=== PATIENT | female | born 1925 | race Caucasian/White ===

== ENCOUNTER 2017-04-06 20:20 | Observation (INO) | payer OTHER ==
[2017-04-06 20:30] VITALS: BMI 29.0
--- NOTE | 2017-04-06 20:30 | PDOC ---
History of Present Illness - History of Present Illness Initial Comments: 04/06/17 21:00 The patient is a 89 year old female, legally blind, swedish speaking, with a significant past medical history of hypertension and CVA (8 months ago), who presents to the emergency department with left leg heaviness and tingling, bilateral hand numbness and tingling this morning. The patient reports the hand and leg tingling with heaviness resolved on its own shortly after. The patient presents with her daughter who reports the patient stopped taking her lisinopril against medical advice for the past week because the patient reported dark diarrhea every time she took it. As per the patients daughter, the patients baseline BP is 150s/60s, however, called the PCP right away after having a BP of 195/90 today. The patients daughter reports taking her mothers BP on both arms with the same result. The patients daughter reports the on-call physician referred her mother to the ED for evaluation" and advised the patient to take her lisinopril. She denies chest pain, shortness of breath, headache and dizziness. She denies fever, chills, nausea, vomit, diarrhea and constipation. She denies dysuria, frequency, urgency and hematuria. PCP - Dr. Marshall PAST MEDICAL HISTORY: no significant history PAST SURGICAL HISTORY: no significant history FAMILY HISTORY: no pertinent history SOCIAL HISTORY: Pt lives with family and is employed. MEDICATIONS: reviewed ALLERGIES: As per nursing notes ROS General: No fevers or chills, no weakness, no weight loss HEENT: No sore throat,. No ear pain CardioVascular: (+) hypertensive. No chest pain or shortness of breath Respiratory:No cough, or wheezing. Gastrointestinal: no nausea, vomiting, diarrhea or constipation, No rectal bleeding Genitourinary: No dysuria, hematuria, or frequency Musculoskeletal: No joint or muscle pain or swelling Neurologic: No headache, vertigo, dizziness or loss of consciousness Psychiatric: nor depression Skin: No rashes or easy bruising Endocrine: no increased thirst or abnormal weight change Allergic: no skin or latex allergy All other systems reviewed and normal Physical Exam: General: AAOx3, well-developed, no acute distress HEENT: Throat: Normal, tonsils normal, no erythema or exudate Neck: Supple, no meningeal signs, no lymphadenopathy Eyes: Pupils equal reactive and round, extraoccular motion intact. Patient is blind. Chest: Nontender to palpation Cardiac: S1-S2 normal, regular rate and rhythm, no murmurs rubs or gallops Respiratory: Lungs clear to auscultation bilateral Abdomen: Soft, nondistended, normal bowel sounds, nontender to palpation diffusely Extremities: Warm, dry, no cyanosis, clubbing, or edema Skin: No rashes <Betzy Lucas - Last Filed: 04/06/17 21:36> - General History Source: Patient, Family Exam Limitations: Language Barrier - History of Present Illness Initial Comments: 04/06/17 22:09 A portion of this note was documented by scribe services under my direction. I have reviewed the details of the note, within reason, and agree with the documentation. The case summary and management plan written by me. EKG normal sinus rhythm with some premature supraventricular, plexus, left axis deviation, LVH with repolarization abnormality. There is also new inverted T waves laterally V4 through V6 when compared with cardiogram of February 2016. Chest x-ray no acute pathology, reviewed by me Neuro: NEURO: Mental status: The patient is oriented x3. Motor: The upper extremities are 5 over 5 in all muscle groups. The lower extremities are 5 over 5 in all muscle groups. Sensation: Sensation is intact to light touch throughout. Cerebellar: [id number] is normal in both upper extremities. Heel-knee- houser is normal in both lower extremities. Gait: Patient able to walk with assistance as she is blind Assessment and plan: This is an 89-year-old female who had an episode lasting for several hours of left lower extremity numbness with some heaviness. Numbness and heaviness was also associated with some mild paresthesias of her hands bilateral. Patient said symptoms had completely resolved after several hours and the at the time she was evaluated in the emergency room patient had a normal exam and no symptoms. Patient's workup Labs were unremarkable with the exception of a 2+ leukocyte esterase for which patient was given a dose of ceftriaxone. Patient's cardiogram did have some new flipped T's laterally when compared with old cardiogram of February 2016 these likely are old however she will be admitted for TIA workup and can also get another 2 sets of cardiac enzymes while here Patient had a head CT that was negative for any acute pathology Patient will be admitted to an inpatient telemetry bed Dr. Marshall is the admitting doctor <Maribell Cabral I - Last Filed: 04/06/17 23:36> - General Chief Complaint: Blood Pressure Problem Stated Complaint: HIGH BLOOD PRESSURE Time Seen by Provider: 04/06/17 20:22 Past History <Betzy Lucas - Last Filed: 04/06/17 21:36> - Past Medical History Diabetes: Yes HTN: Yes Hypercholesterolemia: Yes - Psycho/Social/Smoking Cessation Hx Anxiety: No Suicidal Ideation: No Smoking History: Never smoked Hx Alcohol Use: No Drug/Substance Use Hx: No Substance Use Type: None <Maribell Cabral I - Last Filed: 04/06/17 23:36> - Past Medical History Allergies/Adverse Reactions: Allergies Allergy/AdvReac Type Severity Reaction Status Date / Time No Known Allergies Allergy Verified 04/06/17 20:24 Home Medications: Ambulatory Orders Citalopram Hydrobromide [Citalopram HBr] 20 mg PO DAILY 03/26/15 Clopidogrel Bisulfate [Plavix -] 75 mg PO DAILY 03/26/15 Lisinopril [Prinivil -] 20 mg PO DAILY 03/26/15 Metoprolol Succinate [Toprol Xl -] 100 mg PO HS 03/26/15 Olmesartan/Hydrochlorothiazide [Benicar Hct 40-25 mg Tablet] 1 each PO DAILY Simvastatin [Zocor -] 20 mg PO HS 03/26/15 Aspirin [ASA -] 81 mg PO DAILY 02/29/16 Bimatoprost [Lumigan] 1 drop OD DAILY 04/06/17 Brimonidine Tartrate/Timolol [Combigan Eye Drops] 1 drop OP DAILY 04/06/17 Brinzolamide [Azopt] 1 drop OD BID 04/06/17 Prednisolone 1% Ophthalmic [Pred Forte 1% -] 1 drop OS BID 04/06/17 *Physical Exam - Vital Signs Last Vital Signs Temp Pulse Resp BP Pulse Ox 97.6 F 68 18 182/75 100 04/06/17 20:20 04/06/17 20:20 04/06/17 20:20 04/06/17 20:41 04/06/17 20:20 <Betzy Lucas - Last Filed: 04/06/17 21:36> ED Treatment Course - LABORATORY CBC & Chemistry Diagram: 04/06/17 21:24 04/06/17 21:24 <Betzy Lucas - Last Filed: 04/06/17 21:36> - LABORATORY CBC & Chemistry Diagram: 04/06/17 21:24 04/06/17 21:24 <Maribell Cabral I - Last Filed: 04/06/17 23:36> *DC/Admit/Observation/Transfer - Attestations Scribe Attestion: 04/06/17 21:02 Documentation prepared by Betzy Lucas, acting as medical anthropology director for Maribell Cabral MD <Betzy Lucas - Last Filed: 04/06/17 21:36> - Discharge Dispostion Admit: Yes <Maribell Cabral I - Last Filed: 04/06/17 23:36> Diagnosis at time of Disposition: Transient cerebral ischemia - Discharge Dispostion Condition at time of disposition: Stable - Referrals Referrals: Courtney Marshall MD [Primary Care Provider] -
[2017-04-06 21:39] LABS: URINE APPEARANCE Clear; URINE BILIRUBIN Negative (NEGATIVE); URINE BLOOD Negative (NEGATIVE); URINE GLUCOSE (UA) Negative (NEGATIVE); URINE KETONE Negative (NEGATIVE); URINE NITRITE Negative (NEGATIVE); URINE PROTEIN Negative (NEGATIVE); URINE UROBILINOGEN 0.2 (0.2-1.0)
[2017-04-06 21:42] LABS: URINE COLOR YELLOW; URINE LEUK ESTERASE 2+ (NEGATIVE)
[2017-04-06 21:50] LABS: BASOPHIL 1.2 % (0-2.0); EOSINOPHIL 2.9 % (0-4.5); INR 1.12 (0.82-1.09); MCH 27.6 pg (25.7-33.7); MCHC 32.8 g/dl (32.0-36.0); MEAN CELL VOLUME 84.2 fl (80-96); MEAN PLT VOLUME 10.6 fl (7.5-11.1); PLATELET COUNT 200 K/MM3 (134-434); PROTHROMBIN TIME (PATIENT) 12.5 SEC (10.2-13.0); RDW 13.2 % (11.6-15.6); WHITE BLOOD COUNT 7.6 K/mm3 (4.0-10.8)
[2017-04-06 21:55] LABS: ALBUMIN 3.9 g/dl (3.5-5.0); ALK PHOS 39 U/L (32-92); ANION GAP 7 (8-16); CALCIUM 9.3 mg/dl (8.4-10.2); CO2 31 mmol/L (22-28); CREATININE 0.9 mg/dl (0.6-1.3); GLUCOSE,RANDOM 96 mg/dl (74-106); SGOT/AST 17 U/L (10-42); SGPT/ALT 13 U/L (10-40); TOT PROT 6.9 g/dl (6.4-8.3)
[2017-04-06 22:22] LABS: TROPONIN I (DFP) 0.03 ng/ml (0.03-0.50)
[2017-04-06 22:48] LABS: URINE RBC 0-2 /hpf (0-3)
[2017-04-06 22:49] LABS: URINE BACTERIA FEW /hpf (NEGATIVE)
[2017-04-07] MEDS ORDERED: POTASSIUM CHLORIDE TABS 20 MEQ TABLET.ER (FP) PO ONE ×2 (00:06→00:37)
[2017-04-07] MEDS ORDERED: LABETALOL HCL 5 MG/1 ML (100MG/20 ML VIAL) IVPUSH ONE (00:52)
[2017-04-07] MEDS ORDERED: LABETALOL HCL 5 MG/1 ML (100MG/20 ML VIAL) ONE (01:02)
[2017-04-07 02:32] VITALS: TEMP 98
[2017-04-07 08:34] LABS: ACTIVATED PTT 26.8 SECONDS (24.0-38.9)
[2017-04-07 08:39] LABS: INR 1.08 (0.82-1.09); PROTHROMBIN TIME (PATIENT) 12.1 SEC (10.2-13.0)
[2017-04-07 08:44] LABS: ANION GAP 7 (8-16); CALCIUM 9.4 mg/dl (8.4-10.2); CHOLESTEROL 138 mg/dl; CO2 31 mmol/L (22-28); CREATININE 0.9 mg/dl (0.6-1.3); GLUCOSE,RANDOM 101 mg/dl (74-106)
--- NOTE | 2017-04-07 09:32 | HP ---
CHIEF COMPLAINT: paresthesia to left lower extremity PCP: Joanna HISTORY OF PRESENT ILLNESS: Patient is a 89 y/o female with a past medical history of hypertension, hyperlipidemia, CVA (08/28), bilateral cataracts. Patient reports left leg cramps and heaviness with bilateral hand numbness since early this AM. Patient does report she self-discontinued her lisinipril last week because she felt the medication was culprit for her symptoms. Patient also notes her blood pressure was elevated this AM 195/90. The patient' s daughter contacted her PCP and was referred to the emergency department for further evaluations. Patient reports she feels better at time of exam and denies any paresthesia to the upper extremities, however, she does report a cramping sensation to the left lower extremity. ER course was notable for: (1) ct of head chronic small vessel ischemia (2) EKG nsr with supraventricular complexes, left axis deviation (3) b/p 189/88 Recent Travel: none PAST MEDICAL HISTORY: see hpi PAST SURGICAL HISTORY: cataract surgery Social History: resides with son Smoking:none Alcohol:none Drugs: none Family History: non contributory to this admission Allergies No Known Allergies Allergy (Verified 04/06/17 20:24) HOME MEDICATIONS: Home Medications Medication Instructions Recorded Citalopram Hydrobromide 20 mg PO DAILY 03/26/15 [Citalopram HBr] Clopidogrel Bisulfate [Plavix -] 75 mg PO DAILY 03/26/15 Lisinopril [Prinivil -] 20 mg PO DAILY 03/26/15 Metoprolol Succinate [Toprol Xl -] 100 mg PO HS 03/26/15 Olmesartan/Hydrochlorothiazide 1 each PO DAILY 03/26/15 [Benicar Hct 40-25 mg Tablet] Simvastatin [Zocor -] 20 mg PO HS 03/26/15 Aspirin [ASA -] 81 mg PO DAILY 02/29/16 Bimatoprost [Lumigan] 1 drop OD DAILY 04/06/17 Brimonidine Tartrate/Timolol 1 drop OP DAILY 04/06/17 [Combigan Eye Drops] Brinzolamide [Azopt] 1 drop OD BID 04/06/17 Prednisolone 1% Ophthalmic [Pred 1 drop OS BID 04/06/17 Forte 1% -] REVIEW OF SYSTEMS CONSTITUTIONAL: Absent: fever, chills, diaphoresis, generalized weakness, malaise, loss of appetite, weight change HEENT: Absent: rhinorrhea, nasal congestion, throat pain, throat swelling, difficulty swallowing, mouth swelling, ear pain, eye pain, visual changes CARDIOVASCULAR: Absent: chest pain, syncope, palpitations, irregular heart rate, lightheadedness , peripheral edema RESPIRATORY: Absent: cough, shortness of breath, dyspnea with exertion, orthopnea, wheezing, stridor, hemoptysis GASTROINTESTINAL: Absent: abdominal pain, abdominal distension, nausea, vomiting, diarrhea, constipation, melena, hematochezia GENITOURINARY: Absent: dysuria, frequency, urgency, hesitancy, hematuria, flank pain, genital pain MUSCULOSKELETAL: Absent: myalgia, arthralgia, joint swelling, back pain, neck pain SKIN: Absent: rash, itching, pallor HEMATOLOGIC/IMMUNOLOGIC: Absent: easy bleeding, easy bruising, lymphadenopathy, frequent infections ENDOCRINE: Absent: unexplained weight gain, unexplained weight loss, heat intolerance, cold intolerance NEUROLOGIC: present: focal weakness or paresthesias Absent: headache, , dizziness, unsteady gait, seizure, mental status changes, bladder or bowel incontinence PSYCHIATRIC: Absent: anxiety, depression, suicidal or homicidal ideation, hallucinations. PHYSICAL EXAMINATION Vital Signs - 24 hr 04/07/17 04/07/17 04/07/17 02:29 08:52 08:59 Temperature 98.0 F 98.0 F 98.0 F Pulse Rate 61 62 70 Respiratory 17 17 17 Rate Blood Pressure 187/68 137/43 144/47 04/07/17 09:00 Temperature Pulse Rate Respiratory 17 Rate Blood Pressure GENERAL: Awake, alert, and fully oriented, in no acute distress. HEAD: Normal with no signs of trauma. EYES: Pupils equal, round and reactive to light, extraocular movements intact, sclera anicteric, conjunctiva clear. No lid lag. EARS, NOSE, THROAT: Ears normal, nares patent, oropharynx clear without exudates. Moist mucous membranes. NECK: Normal range of motion, supple without lymphadenopathy, JVD, or masses. LUNGS: Breath sounds equal, clear to auscultation bilaterally. No wheezes, and no crackles. No accessory muscle use. HEART: Regular rate and rhythm, normal S1 and S2 without murmur, rub or gallop. ABDOMEN: Soft, nontender, not distended, normoactive bowel sounds, no guarding, no rebound, no masses. No hepatomegaly or splenomegaly. MUSCULOSKELETAL: Normal range of motion at all joints. No bony deformities or tenderness. No CVA tenderness. UPPER EXTREMITIES: 2+ pulses, warm, well-perfused. No cyanosis. No clubbing. No peripheral edema. LOWER EXTREMITIES: 2+ pulses, warm, well-perfused. No calf tenderness. No peripheral edema. NEUROLOGICAL: Cranial nerves II-XII intact. Normal speech. Normal gait. PSYCHIATRIC: Cooperative. Good eye contact. Appropriate mood and affect. SKIN: Warm, dry, normal turgor, no rashes or lesions noted, normal capillary refill. Laboratory Results - last 24 hr 04/07/17 04/07/17 04/07/17 04:00 04:00 07:30 INR 1.08 PTT (Actin FS) 26.8 Sodium Potassium Chloride Carbon Dioxide Anion Gap BUN Creatinine Random Glucose Calcium Magnesium 2.0 Troponin I < 0.02 Triglycerides Cholesterol HDL Cholesterol 04/07/17 07:30 INR PTT (Actin FS) Sodium 140 Potassium 4.3 D Chloride 102 Carbon Dioxide 31 H Anion Gap 7 L BUN 17 D Creatinine 0.9 Random Glucose 101 Calcium 9.4 Magnesium Troponin I Triglycerides 126 Cholesterol 138 HDL Cholesterol 39 Laboratory Tests 04/06/17 04/07/17 04/07/17 21:24 04:00 07:30 Troponin I 0.03 < 0.02 0.02 ASSESSMENT/PLAN: 1) card hypertension - restart lisnopril, hct, toprol, diovan (substitute for benicar), strict b/p monitoring - pending echo - continous cardiac monitoring - troponin x 3 wnl hyperlipidemia - continue zocor 2)neuro previous cva - continue plavix - head ct reviewed no acute pathology - symptoms consistent with PVD and uncontrolled hypertension - case discussed Dr Humphries (neurology) at bedside - pending vitamin b12, bilateral lower extremity doppler, carotid doppler f/e/n - low cholestrol/sodium diet - replete electrolytes prn ppx - oob - scd - pt dispo: requires 24 hour obsv - Visit type - Emergency Visit Emergency Visit: Yes ED Registration Date: 04/07/17 Care time: The patient presented to the Emergency Department on the above date and was hospitalized for further evaluation of their emergent condition. - New Patient This patient is new to me today: Yes Date on this admission: 04/07/17 - Critical Care Critical Care patient: No
--- NOTE | 2017-04-07 09:46 | CON.NEURO ---
Consult - History of Present Illness History of Present Illness: 89 year old female, legally blind/left eye surgery, romanian speaking, with a significant past medical history of hypertension and CVA (8 months ago), who presents to the emergency department with left leg heaviness and tingling, bilateral hand numbness and tingling this morning. The patient reports the hand and leg tingling with heaviness resolved on its own shortly after. Today she states only numbness in the left leg; denies numbness of arms or face. Denies MARI or new focal complaint. BP has fluctuated. states she does nt check her sugars. PAST MEDICAL HISTORY: no significant history PAST SURGICAL HISTORY: no significant history FAMILY HISTORY: no pertinent history SOCIAL HISTORY: Pt lives with family and is employed. MEDICATIONS: reviewed ALLERGIES: As per nursing notes - History Source History Provided By: Patient, Medical Record - Past Medical History Cardio/Vascular: Yes: Other (hypertension) ...LMP Comment: 89 Y/O ...: No - Alcohol/Substance Use Hx Alcohol Use: No - Smoking History Smoking history: Never smoked Have you smoked in the past 12 months: No Home Medications - Allergies Allergies/Adverse Reactions: Allergies Allergy/AdvReac Type Severity Reaction Status Date / Time No Known Allergies Allergy Verified 04/06/17 20:24 - Home Medications Home Medications: Ambulatory Orders Citalopram Hydrobromide [Citalopram HBr] 20 mg PO DAILY 03/26/15 Clopidogrel Bisulfate [Plavix -] 75 mg PO DAILY 03/26/15 Lisinopril [Prinivil -] 20 mg PO DAILY 03/26/15 Metoprolol Succinate [Toprol Xl -] 100 mg PO HS 03/26/15 Olmesartan/Hydrochlorothiazide [Benicar Hct 40-25 mg Tablet] 1 each PO DAILY Simvastatin [Zocor -] 20 mg PO HS 03/26/15 Aspirin [ASA -] 81 mg PO DAILY 02/29/16 Bimatoprost [Lumigan] 1 drop OD DAILY 04/06/17 Brimonidine Tartrate/Timolol [Combigan Eye Drops] 1 drop OP DAILY 04/06/17 Brinzolamide [Azopt] 1 drop OD BID 04/06/17 Prednisolone 1% Ophthalmic [Pred Forte 1% -] 1 drop OS BID 07/25/17 Physical Exam-Neuro Vital Signs: Vital Signs Temperature 98.0 F 04/07/17 08:59 Pulse Rate 70 04/07/17 08:59 Respiratory Rate 17 04/07/17 09:00 Blood Pressure 144/47 04/07/17 08:59 O2 Sat by Pulse Oximetry (%) 99 04/07/17 00:57 Labs: CBC, BMP 04/07/17 07:30 INR, PTT INR 1.08 (0.82-1.09) 04/07/17 07:30 - Neuro Exam Level Of Consciousness: Yes: Alert (awake and conversive, no dysrthria, no aphasia, left eye surgical ptosis, no facial, no drift , no focal weakness, dec PP distal L leg, decrease pulse distally, reflexes (-) distally; ) NIH Stroke Scale - Total Score NIH Stroke Scale Score: 0 Problem List - Problems (1) Essential (primary) hypertension Code(s): I10 - ESSENTIAL (PRIMARY) HYPERTENSION (2) Diabetic neuropathy Code(s): E11.40 - TYPE 2 DIABETES MELLITUS WITH DIABETIC NEUROPATHY, UNSP Assessment/Plan 89 year old female, legally blind/left eye surgery, romanian speaking, with a significant past medical history of hypertension and CVA (8 months ago), who presents to the emergency department with left leg heaviness and tingling, bilateral hand numbness and tingling this morning. The patient reports the hand and leg tingling with heaviness resolved on its own shortly after. Today she states only numbness in the left leg; denies numbness of arms or face. Denies MARI or new focal complaint. BP has fluctuated. states she does nt check her sugars. denies low back pain. no focal weakness on exam; doubt vascular event given only distal leg numbness more likely diabetic vs PVD vs spasm; no signs of radiculopathy can do dopplers/PVD check and outpt EMG check BP control, cont plavix /statin a1c good, FU B12, can use low dose neurontin if need be Dr Pop [phone]
[2017-04-07] MEDS ORDERED: TIMOLOL 0.5% OPHTHALMIC SOL 5 ML BOTTLE OU SCH (10:00)
[2017-04-07] MEDS ORDERED: HYDROCHLOROTHIAZIDE 25 MG TABLET (FP) PO SCH (10:00)
[2017-04-07] MEDS ORDERED: ASPIRIN 81 MG CHEWABLE TABLETS PO SCH (10:00)
[2017-04-07] MEDS ORDERED: prednisoLONE ACETATE 1% OPHTH SUSP 5 ML BOTTLE OS SCH (10:00)
[2017-04-07] MEDS ORDERED: VALSARTAN 160 MG TABLET (UD) PO SCH (10:00)
[2017-04-07] MEDS ORDERED: CLOPIDOGREL BISULFATE 75 MG TABLET (FP) PO SCH (10:00)
[2017-04-07] MEDS ORDERED: PATIENT'S OWN MEDICATION (NON-FORMULARY) (Brinzolamide [Azopt] 1 DROP) OD SCH (10:00)
[2017-04-07] MEDS ORDERED: PATIENT'S OWN MEDICATION (NON-FORMULARY) (Olmesartan/Hydrochlorothiazide [Benicar Hct 40-2 PO SCH (10:00)
[2017-04-07] MEDS ORDERED: LISINOPRIL 20 MG TABLET (FP) PO SCH (10:00)
[2017-04-07] MEDS ORDERED: CITALOPRAM HYDROBROMIDE 20 MG TABLET (FP) PO SCH (10:00)
[2017-04-07] MEDS ORDERED: DORZOLAMIDE 2% HCL OPHTHALMIC SOLUTION 10 ML BOTTLE OU SCH (10:00)
[2017-04-07] MEDS ORDERED: PATIENT'S OWN MEDICATION (NON-FORMULARY) (Brimonidine Tartrate/Timolol [Combigan 0.2%-0.5% OP SCH (10:00)
--- NOTE | 2017-04-07 10:33 | PN ---
Progress Note (short form) - Note Progress Note: I am covering dr Marshall while she is away. I was paged by Ksenia's daughter last evening around 6 pm that she checked her mother's BP at home and it was 169/84 at home; usually her BP is around 150s/ 80s. Per daughter, Ksenia self stopped her lisinopril about 10 days prior to yesterday because she thought it gave her diarrhea. Daughter said Ksenia did not have any headaches, visual changes, focal c/o or CP/SOB or any other c/o while we were talking over the phone. I reviewed her medication with her daughter over the phone and I advised her to restart lisinopril right away as previously prescribed, and to check BP in 1 hour and if over 170/90 to take her to ER right away, also I advised that if pt develops any headaches, CP/SOB, focal c/o or visual changes to take her to ER right away regardless of the BP readings. If pt asymptomatic and BP better, I offered her to come in to our office to be seen until dr Marshall returns (otherwise to go to ER). Her daughter said she will call us back.
[2017-04-07 12:19] LABS: THYROID STIMULATING HORMONE 2.53 uIU/ml (0.358-3.74)
[2017-04-07 12:25] LABS: LDL CHOLESTEROL (ONLY SJRH) 74 mg/dL (5-100)
--- NOTE | 2017-04-07 13:13 | EKG ---
Test Reason : Blood Pressure : / mmHG Vent. Rate : 064 BPM Atrial Rate : 064 BPM P-R Int : 150 ms QRS Dur : 078 ms QT Int : 442 ms P-R-T Axes : 016 -44 118 degrees QTc Int : 455 ms SINUS RHYTHM WITH PREMATURE SUPRAVENTRICULAR COMPLEXES LEFT AXIS DEVIATION LEFT VENTRICULAR HYPERTROPHY WITH REPOLARIZATION ABNORMALITY NONSPECIFIC T WAVE ABNORMALITY ABNORMAL ECG WHEN COMPARED WITH ECG OF 25-MAR-2015 23:10, PREMATURE SUPRAVENTRICULAR COMPLEXES ARE NOW PRESENT T WAVE INVERSION NOW EVIDENT IN V4-6 Confirmed by WEST LOPEZ MD ([id number]) on 04/07/2017 1:13:18 PM Referred By: DR CROCKETT Confirmed By:WEST LOPEZ MD
[2017-04-07 14:11] VITALS: BP 128/49; PULSE 61
--- NOTE | 2017-04-07 14:12 | DS ---
Physical Exam: SUBJECTIVE: Patient seen and examined OBJECTIVE: Vital Signs Period Temp Pulse Resp BP Sys/Degroot Pulse Ox Last 24 Hr 98.0 F-98.0 F 61-70 17-18 128-187/43-68 PHYSICAL EXAM GENERAL: The patient is awake, alert, and fully oriented, in no acute distress. HEAD: Normal with no signs of trauma. EYES: PERRL, extraocular movements intact, sclera anicteric, conjunctiva clear. ENT: Ears normal, nares patent, oropharynx clear without exudates, moist mucous membranes. NECK: Trachea midline, full range of motion, supple. LUNGS: Breath sounds equal, clear to auscultation bilaterally, no wheezes, no crackles, no accessory muscle use. HEART: Regular rate and rhythm, S1, S2 without murmur, rub or gallop. ABDOMEN: Soft, nontender, nondistended, normoactive bowel sounds, no guarding, no rebound, no hepatosplenomegaly, no masses. EXTREMITIES: 2+ pulses, warm, well-perfused, no edema. NEUROLOGICAL: Cranial nerves II through XII grossly intact. Normal speech, gait not observed. PSYCH: Normal mood, normal affect. SKIN: Warm, dry, normal turgor, no rashes or lesions noted. LABS Laboratory Results - last 24 hr 04/07/17 04/07/17 04/07/17 04:00 04:00 07:30 INR 1.08 PTT (Actin FS) 26.8 Sodium Potassium Chloride Carbon Dioxide Anion Gap BUN Creatinine Random Glucose Hemoglobin A1c % Calcium Magnesium 2.0 Troponin I < 0.02 Triglycerides Cholesterol Total LDL Cholesterol HDL Cholesterol Vitamin B12 TSH 04/07/17 04/07/17 04/07/17 07:30 07:30 07:30 INR PTT (Actin FS) Sodium 140 Potassium 4.3 D Chloride 102 Carbon Dioxide 31 H Anion Gap 7 L BUN 17 D Creatinine 0.9 Random Glucose 101 Hemoglobin A1c % 6.1 H D Calcium 9.4 Magnesium Troponin I 0.02 Triglycerides 126 Cholesterol 138 Total LDL Cholesterol 74 HDL Cholesterol 39 Vitamin B12 579 TSH 2.53 D 04/07/17 07:30 INR PTT (Actin FS) Sodium Potassium Chloride Carbon Dioxide Anion Gap BUN Creatinine Random Glucose Hemoglobin A1c % Calcium Magnesium Troponin I Triglycerides Cholesterol Total LDL Cholesterol HDL Cholesterol Vitamin B12 Cancelled TSH HOSPITAL COURSE: Date of Admission:04/07/17 Date of Discharge: 04/07/17 Discharge Summary Reason For Visit: HIGH BLOOD PRESSURE Current Active Problems Diabetic neuropathy (Acute) TIA (transient ischemic attack) (Acute) Condition: Stable - Instructions Referrals: Courtney Marshall MD [Primary Care Provider] - - Home Medications Comprehensive Discharge Medication List: Ambulatory Orders Citalopram Hydrobromide [Citalopram HBr] 20 mg PO DAILY 03/26/15 Clopidogrel Bisulfate [Plavix -] 75 mg PO DAILY 03/26/15 Lisinopril [Prinivil -] 20 mg PO DAILY 03/26/15 Metoprolol Succinate [Toprol Xl -] 100 mg PO HS 03/26/15 Olmesartan/Hydrochlorothiazide [Benicar Hct 40-25 mg Tablet] 1 each PO DAILY Simvastatin [Zocor -] 20 mg PO HS 03/26/15 Aspirin [ASA -] 81 mg PO DAILY 02/29/16 Bimatoprost [Lumigan] 1 drop OD DAILY 04/06/17 Brimonidine Tartrate/Timolol [Combigan Eye Drops] 1 drop OP DAILY 04/06/17 Brinzolamide [Azopt] 1 drop OD BID 04/06/17 Prednisolone 1% Ophthalmic [Pred Forte 1% -] 1 drop OS BID 04/06/17
[2017-04-07] MEDS ORDERED: LATANOPROST 0.005% OPHTH SOLN 2.5ML BOTTLE OD SCH (22:00)
[2017-04-07] MEDS ORDERED: METOPROLOL SUCCINATE 100 MG TAB.SR.24H (FP) PO SCH (22:00)
--- NOTE | 2017-04-08 07:54 | EKG ---
Test Reason : Blood Pressure : / mmHG Vent. Rate : 058 BPM Atrial Rate : 058 BPM P-R Int : 154 ms QRS Dur : 074 ms QT Int : 452 ms P-R-T Axes : 042 -46 110 degrees QTc Int : 443 ms SINUS BRADYCARDIA LEFT ANTERIOR FASCICULAR BLOCK LEFT VENTRICULAR HYPERTROPHY WITH REPOLARIZATION ABNORMALITY NONSPECIFIC T WAVE ABNORMALITY ABNORMAL ECG WHEN COMPARED WITH ECG OF 06-APR-2017 21:49, PREMATURE SUPRAVENTRICULAR COMPLEXES ARE NO LONGER PRESENT Confirmed by WEST LOPEZ MD ([id number]) on 04/08/2017 7:54:16 AM Referred By: MD JORDEN ALVA Confirmed By:WEST LOPEZ MD
== END 2017-04-07 16:15 | disposition home health service (06) ==
LOC: FER 20:20 → FM/S 04-07 02:09
PROVIDERS: ADMIT Internal Medicine; ATTEND Nurse Practitioner Family
DX: I10 Essential (primary) hypertension (principal); G45.9 Transient cerebral ischemic attack, unspecified; E11.40 Type 2 diabetes mellitus with diabetic neuropathy, unspecified; E78.5 Hyperlipidemia, unspecified; H54.8 Legal blindness, as defined in USA; H26.9 Unspecified cataract; Z86.73 Personal history of transient ischemic attack (TIA), and cerebral infarction without residual deficits; Z91.14 Patient's other noncompliance with medication regimen; Z79.82 Long term (current) use of aspirin
CPT/HCPCS: 36415; 70450-TC; 71010-TC; 80048; 80053; 80061; 81003; 81015; 82550; 82607; 83036; 83690; 83721; 83735; 84443; 84484; 85025; 85610; 85730; 93005; 93306-TC; 93880-TC; 93970-TC; 99284-25; G0378